=== PATIENT | female | born 1985 | race Hispanic/Latino ===

== ENCOUNTER 2021-06-28 15:03 | Outpatient (CLI) | payer OTHER ==
[2021-06-29 00:43] LABS: SARS-CoV-2 PCR by NAA Not Detected (NotDetected)
== END 2021-06-28 15:04 | disposition home or self-care (01) ==
LOC: CSHLAB 15:03
PROVIDERS: ATTEND Family Medicine
DX: Z20.822 Contact with and (suspected) exposure to COVID-19 (principal)
CPT/HCPCS: U0003; U0005

== ENCOUNTER 2021-07-03 18:00 | Inpatient (IN) | payer MEDICAID, OTHER, SELFPAY ==
[~2021-07-03 18:00] MED LIST: Bupivacaine 0.25% HCL 30 ML VIAL ONE
[2021-07-03] MEDS: Lactated Ringer's 1,000 ML IV SCH (21:20)
[2021-07-03] MEDS ORDERED: HYDROcodone/Acetaminophen 5/325 mg Tablet PO PRN (21:29)
[2021-07-03] MEDS ORDERED: Ibuprofen 800 MG TAB PO PRN (21:29)
[2021-07-03] MEDS ORDERED: Diphenoxylate HCl/Atropine Tablet PO PRN (21:29)
[2021-07-03] MEDS ORDERED: Acetaminophen 500 MG TAB PO PRN (21:29)
[2021-07-03] MEDS ORDERED: Promethazine HCl 25 MG/ML VIAL IM PRN (21:29)
[2021-07-03] MEDS ORDERED: Ondansetron PF 4 MG/2 ML Vial IVP PRN (21:29)
[2021-07-03] MEDS ORDERED: Methylergonovine 0.2 MG/ML VIAL IM PRN (21:29)
[2021-07-03] MEDS ORDERED: Lidocaine 1% (PF) 30 ML VIAL SC PRN (21:29)
[2021-07-03] MEDS ORDERED: hydrALAZINE 20 MG/ML VIAL SLOW IVP PRN (21:29)
[2021-07-03] MEDS ORDERED: Carboprost 250 MCG/ML AMP IM PRN (21:29)
[2021-07-03] MEDS ORDERED: Misoprostol 200 MCG TAB PR PRN (21:29)
[2021-07-03] MEDS ORDERED: Butorphanol Tartrate 1 MG/ML VIAL SLOW IVP PRN (21:29)
[2021-07-03] MEDS: Misoprostol 100 MCG TAB PO SCH (22:13)
[2021-07-03 22:32] VITALS: BMI 31.4
[2021-07-03 22:41] LABS: Hemoglobin 13.6 g/dL (12.0-15.5); Mean Corpuscular HGB CONC 35.1 g/dL (32.0-36.0); Mean Corpuscular Hemoglobin 33.5 pg (27.0-33.0); Mean Corpuscular Volume 95.3 fl (81.6-98.3); Mean Platelet Volume 11.6 fl (7.4-10.4); Platelet Count 328 10x3/uL (150-450); RBC Distribution Width 12.1 % (11.5-14.5); Red Blood Cell (RBC) Count 4.06 10x6/uL (3.90-5.03); White Blood Cell (WBC) Count 10.8 10x3/uL (3.5-10.5)
[2021-07-03 22:52] LABS: Hep B Surf Ag Non-Reactive S/CO (NonReactive); Syphilis Antibody Nonreactive (Nonreactive); Syphilis Antibody Index 0.08 S/CO (<1.00 Non-Reactive)
[2021-07-03 22:58] LABS: HBSAg Index 0.25 S/CO (0-0.99)
[2021-07-04] MEDS: Misoprostol 100 MCG TAB PO SCH ×2 (02:06→02:32)
[2021-07-04] MEDS ORDERED: Fentanyl 2 mcg/Bup 0.1% Cadd 100 ML ONE ×2 (02:21→11:43)
[2021-07-04] MEDS: Lactated Ringer's 1,000 ML IV SCH ×2 (02:39→11:47)
[2021-07-04] MEDS ORDERED: Naloxone HCl 0.4 mg/ml Vial IVP PRN ×2 (03:59)
[2021-07-04] MEDS ORDERED: ePHEDrine Sulfate 50 MG/10 ML VIAL SLOW IVP PRN (03:59)
[2021-07-04] MEDS ORDERED: Promethazine HCl 25 MG/ML VIAL IM PRN ×2 (03:59→20:12)
[2021-07-04] MEDS ORDERED: Acetaminophen 325 MG TAB PO PRN (03:59)
[2021-07-04] MEDS ORDERED: Lactated Ringer's 500 ML IV PRN (03:59)
[2021-07-04] MEDS ORDERED: diphenhydrAMINE 50 MG/ML VIAL IVP PRN (03:59)
[2021-07-04] MEDS ORDERED: Hydrocerin (Eucerin) Cream 120 gm Jar TOP PRN (03:59)
[2021-07-04] MEDS ORDERED: Fentanyl 2 mcg/Bupivacaine 0.1% Cassette 100 ML EPIDURAL SCH (04:00)
[2021-07-04] MEDS ORDERED: Communication Order-Pharmacy FS SCH (04:00)
[2021-07-04] MEDS: Ondansetron PF 4 MG/2 ML Vial IVP PRN ×2 (04:55→17:58)
[2021-07-04] MEDS: NS w/ Oxytocin 30 units 500 ML IV SCH ×2 (04:55→17:18)
[2021-07-04] MEDS ORDERED: Misoprostol 200 MCG TAB ONE (16:17)
[2021-07-04] MEDS ORDERED: Methylergonovine 0.2 MG/ML VIAL ONE (16:26)
[2021-07-04] MEDS ORDERED: Milk Of Magnesia 30 ML UDCUP PO PRN (20:12)
[2021-07-04] MEDS ORDERED: Bisacodyl 10 MG SUPP PR PRN (20:12)
[2021-07-04] MEDS ORDERED: Boostrix 0.5 ML (Tdap) VIAL IM ONE (20:12)
[2021-07-04] MEDS ORDERED: diphenhydrAMINE 25 MG CAP PO PRN (20:12)
[2021-07-04] MEDS ORDERED: Lanolin Ointment 7 GM TUBE TOP PRN (20:12)
[2021-07-04] MEDS ORDERED: Ondansetron PF 4 MG/2 ML Vial IVP PRN (20:12)
[2021-07-04] MEDS ORDERED: HYDROcodone/Acetaminophen 5/325 mg Tablet PO PRN (20:12)
[2021-07-04] MEDS ORDERED: hydrALAZINE 20 MG/ML VIAL SLOW IVP PRN (20:12)
[2021-07-04] MEDS ORDERED: Ferrous Sulfate 325 MG TAB PO SCH (20:30)
[2021-07-04] MEDS ORDERED: NS w/ Oxytocin 30 units 500 ML IV SCH (20:30)
[2021-07-04] MEDS: Ibuprofen 800 MG TAB PO SCH (22:08)
[2021-07-05] MEDS: Docusate 100 MG CAP PO SCH ×3 (00:08→21:20)
[2021-07-05] MEDS: Ibuprofen 800 MG TAB PO SCH ×3 (05:35→21:20)
[2021-07-05] MEDS: Ferrous Sulfate 325 MG TAB PO SCH ×2 (08:09→17:08)
[2021-07-05] MEDS: Prenatal Vitamin 1 TAB PO SCH (08:50)
[2021-07-06] MEDS: Ibuprofen 800 MG TAB PO SCH (05:04)
[2021-07-06] MEDS: Ferrous Sulfate 325 MG TAB PO SCH (07:24)
[2021-07-06] MEDS: Prenatal Vitamin 1 TAB PO SCH (08:56)
[2021-07-06] MEDS: Docusate 100 MG CAP PO SCH (08:56)
[2021-07-06 08:59] VITALS: BP 113/66; TEMP 98.1
== END 2021-07-06 13:25 | disposition home or self-care (01) | DRG 807 ==
LOC: CSHLD 19:55 → CSHPP 07-04 20:00
PROVIDERS: ADMIT Family Medicine; ATTEND Family Medicine
PROC: 3E0P7VZ Introduction of Hormone into Female Reproductive, Via Natural or Artificial Opening (ICD-10-PCS; 2021-07-03)
PROC: 10E0XZZ Delivery of Products of Conception, External Approach (ICD-10-PCS; principal; 2021-07-04)
DX: O36.5930 Maternal care for other known or suspected poor fetal growth, third trimester, not applicable or unspecified (principal); Z37.0 Single live birth; Z3A.37 37 weeks gestation of pregnancy; O69.81X0 Labor and delivery complicated by cord around neck, without compression, not applicable or unspecified
CPT/HCPCS: 36415; 51702; 85027; 86780; 86850; 86900; 86901; 87340; 88307; J2405; J2590; J7120; S0020